=== PATIENT | female | born 1975 ===

== ENCOUNTER 2020-09-14 10:00 | Outpatient (CLI) | payer BC ==
--- NOTE | 2020-09-14 10:35 | MMO ---
Bilateral MAMMO Bilat Screen [facility]. CLINICAL HISTORY: Patient is 45 years old and is seen for screening. The patient has no family history of breast cancer. The patient has no personal history of cancer. VIEWS: The views performed were: bilateral craniocaudal with tomosynthesis; bilateral mediolateral oblique with tomosynthesis; and bilateral mediolateral with tomosynthesis. This study has been interpreted with the assistance of computer-aided detection. MAMMOGRAM FINDINGS: The breasts are heterogeneously dense, which could obscure a lesion on mammography. There are benign appearing calcifications seen in both breasts. There are no suspicious masses, suspicious calcifications, or new areas of architectural distortion. IMPRESSION: THERE IS NO MAMMOGRAPHIC EVIDENCE OF MALIGNANCY. A ROUTINE FOLLOW-UP MAMMOGRAM IN 1 YEAR IS RECOMMENDED. THE RESULTS OF THIS EXAM WERE SENT TO THE PATIENT. ACR BI-RADS Category 2 - Benign finding MAMMOGRAPHY NOTE: 1. A negative mammogram report should not delay a biopsy if a dominant of clinically suspicious mass is present. 2. Approximately 10% to 15% of breast cancers are not detected by mammography. 3. Adenosis and dense breasts may obscure an underlying neoplasm. Reported by: ASTRID BOWMAN MD Electonically Signed: [id number]
--- NOTE | 2020-09-14 12:07 | ULT ---
Exam: Pelvic ultrasound including Transabdominal, Transvaginal, And Vascular Duplex with color and spectral Doppler imaging: HISTORY: Pelvic pain COMPARISON: None FINDINGS: The uterus is 9.2 x 5.1 x 6.2 cm Endometrial thickness:1.0 cm Right ovary:3.4 x 1.0 x 1.9 cm Left ovary:3.0 x 1.3 x 1.4 cm No abscess or significant abnormal fluid collection. Vascular duplex examination demonstrates no evidence for ovarian torsion IMPRESSION: No significant acute process within the pelvis
== END 2020-09-14 10:01 | disposition home or self-care (01) ==
LOC: BICMAMMO 10:00
PROVIDERS: ATTEND Family Medicine
DX: Z12.31 Encounter for screening mammogram for malignant neoplasm of breast (principal); R39.89 Other symptoms and signs involving the genitourinary system
CPT/HCPCS: 76856; 77063; 77067